=== PATIENT | female | born 1960 | race Caucasian/White ===

== ENCOUNTER → 2017-06-17 | Outpatient (CLI) | payer MEDICAID | LOC: FIMAGING 09:16 | PROVIDERS: ATTEND Family Medicine | DX: Z12.31 Encounter for screening mammogram for malignant neoplasm of breast (principal) | CPT/HCPCS: G0202 ==

== ENCOUNTER → 2018-06-17 | Outpatient (CLI) | payer MEDICAID | LOC: FIMAGING 08:59 | PROVIDERS: ATTEND Family Medicine | DX: R10.11 Right upper quadrant pain (principal); R53.83 Other fatigue; R42 Dizziness and giddiness ==

== ENCOUNTER 2018-06-30 16:16 | Emergency (ER) | payer MEDICAID ==
--- NOTE | 2018-06-30 17:19 | EDPHY ---
H & P Stated Complaint: RUQ pain for 1 month, getting worse. Time Seen by Provider: 06/30/18 16:54 HPI/ROS: CHIEF COMPLAINT: Right upper quadrant pain HISTORY OF PRESENT ILLNESS: 58-year-old female presents with a one-month history of right upper quadrant pain. Waxing and waning right upper quadrant pain over the last month, now moderate and associated with nausea. The pain is not affected by eating. No alleviating or aggravating factors. Right upper quadrant ultrasound on 06/17/2018 revealed a normal-appearing gallbladder. Laboratory tests at that time were also unremarkable. No urinary symptoms, vomiting, diarrhea or fever. REVIEW OF SYSTEMS: complete 10 point ROS reviewed and is negative except for the noted elements in the HPI Source: Patient - Personal History Current Tetanus Diphtheria and Acellular Pertussis (TDAP): Yes - Medical/Surgical History Hx Asthma: No Hx Chronic Respiratory Disease: No Hx Diabetes: No Hx Cardiac Disease: No Hx Renal Disease: No Hx Cirrhosis: No Hx Alcoholism: No Hx HIV/AIDS: No Hx Splenectomy or Spleen Trauma: No Other PMH: depression - Social History Smoking Status: Never smoked - Physical Exam Exam: General Appearance: Alert, pleasant Eyes: Pupils equal and round, no conjunctival pallor ENT, Mouth: Mucous membranes moist Neck: Normal inspection Respiratory: Lungs are clear to auscultation Cardiovascular: Regular rate and rhythm Gastrointestinal: Abdomen is soft, right upper quadrant tenderness Back: Right CVA tenderness Neurological: A&O, nonfocal, normal gait Skin: Warm and dry Extremities: Normal inspection Psychiatric: Mood and affect normal Constitutional: Initial Vital Signs Temperature (C) 36.7 C 06/30/18 16:20 Heart Rate 67 06/30/18 16:20 Respiratory Rate 18 06/30/18 16:20 Blood Pressure 111/78 06/30/18 16:20 O2 Sat (%) 98 06/30/18 16:20 O2 Delivery Mode Room Air Allergies/Adverse Reactions: codeine Allergy (Verified 12/17/14 13:38) diphenhydramine HCl [From Benadryl] Allergy (Verified 12/17/14 13:38) iodine Allergy (Verified 12/17/14 13:38) morphine Allergy (Verified 12/17/14 13:38) Penicillins Allergy (Verified 12/17/14 13:38) Home Medications: Medication Instructions Recorded Sertraline HCl 12/17/14 Medical Decision Making - Diagnostics Imaging Results: Abdomen/Pelvis CT 06/30/18 17:15 Impression: 1. No nephrolithiasis or hydronephrosis. 2. Constipation. 3. Previous lumbar fusion. 4. Previous appendectomy. Attention: This CT examination is specifically designed to evaluate patients who are clinically suspected of having acute obstructive uropathy. This examination does not use radiographic contrast, and as such, provides only a limited evaluation of the abdomen, pelvis and retroperitoneum. If there is further clinical suspicion for pathological conditions other than obstructive uropathy, a complete CT evaluation of the abdomen and pelvis utilizing intravenous, oral, and rectal contrast should be considered. Findings and recommendations discussed with Emergency Department physician, Dr. Martina Stringer at 1735 hour, 06/30/2018. Final report concurs with initial preliminary interpretation. Chest X-Ray 06/30/18 17:40 Impression: Negative chest.. Imaging: Discussed imaging studies w/ will call clerk Radiologist ED Course/Re-evaluation: This patient presents with subacute right upper quadrant pain, with negative prior workup including outpatient right upper quadrant ultrasound. Physical exam today reveals right upper quadrant tenderness, without peritoneal signs. CT scan of the abdomen pelvis ordered to rule out renal colic as etiology and this test is unremarkable, except for constipation. Results discussed with the patient. Laboratory studies today are normal, without signs of infection or elevated LFTs. Discussed with the patient, need for further outpatient evaluation. I do not feel that admission is indicated today. She appears quite comfortable and is eating without problem. Magnesium citrate given as a trial at home for constipation. She will follow up with a surgeon for further evaluation. Consider HIDA scan as outpatient. She will return to the emergency department for worsening symptoms, fever, vomiting or any concerns. Differential Diagnosis: Differential diagnosis includes though it is not limited to appendicitis, cholecystitis, diverticulitis, pyelonephritis, bowel perforation, small bowel obstruction. - Data Points Laboratory Results: Laboratory Results 06/30/18 17:00 06/30/18 17:00 Medications Given: Discontinued Medications Magnesium Citrate (Magnesium Citrate) 300 ml PO ONCE ONE Stop: 06/30/18 18:40 Last Admin: 06/30/18 18:46 Dose: 300 ml Departure - Departure Disposition: Home, Routine, Self-Care Clinical Impression: Abdominal pain Qualifiers: Abdominal location: right upper quadrant Qualified Code(s): R10.11 - Right upper quadrant pain Condition: Good Instructions: Acute Abdominal Pain (ED) Additional Instructions: Sometimes we are unable to diagnose an obvious cause of abdominal pain in the Emergency Department. Based upon our evaluation today, we see no obvious explanation for your pain. Because more serious conditions can be difficult to diagnose, we ask that you follow-up in 1-2 days for a recheck if you are still having pain. This is necessary to exclude the development of a more serious condition such as appendicitis or other intra-abdominal emergency. In the event your pain markedly increases before that time or you develop intractable vomiting or fever return to the Emergency Department immediately. Referrals: Judie Richardson PA [Primary Care Provider] - As per Instructions Dakota Monae MD [Medical Doctor] - As per Instructions (Call to make an appointment.)
[2018-06-30 17:24] LABS: PLATELET COUNT 144 10^3/uL (150-400)
[2018-06-30] MEDS ORDERED: MAGNESIUM CITRATE 300 ML BOTTLE PO ONE (18:39)
[2018-06-30 18:50] VITALS: BP 124/73
== END 2018-06-30 18:52 | disposition home or self-care (01) ==
DX: R10.11 Right upper quadrant pain (principal); R11.0 Nausea

== ENCOUNTER → 2018-07-03 | Outpatient (CLI) | payer MEDICAID | LOC: FIMAGING 12:05 | PROVIDERS: ATTEND Surgery | PROC: CF1CYZZ Planar Nuclear Medicine Imaging of Hepatobiliary System, All using Other Radionuclide (ICD-10-PCS; principal; 2018-07-03) | DX: R10.11 Right upper quadrant pain (principal) | CPT/HCPCS: 78227; A9537 ==